=== PATIENT | female | born 1995 | race Two or more races ===

== ENCOUNTER 2022-12-09 11:23 | Emergency (ER) | payer OTHER ==
[~2022-12-09] VITALS: Ht 167.6 cm; Wt 66.8 kg
[2022-12-09] MEDS ORDERED: CYAN100T45 PO (11:37)
[2022-12-09] MEDS ORDERED: LISD60CA PO (11:37)
[2022-12-09] MEDS ORDERED: FLUT1DIS4 IH (11:40)
[2022-12-09] MEDS ORDERED: IBUPROFEN 600 MG TABLET PO ONE (14:45)
[2022-12-09 15:05] LABS: BASOPHILS % (AUTO) 0.5 % (0.0-2.0); EOSINOPHILS % (AUTO) 1.6 % (1.0-6.0); HEMATOCRIT 45.9 % (36-46); HEMOGLOBIN 14.9 g/dL (12.0-16.0); LYMPHOCYTES # (AUTO) 2.2 K/uL (1.0-4.8); LYMPHOCYTES % (AUTO) 33.5 % (22.0-44.0); MEAN CORPUSCULAR HEMOGLOBIN 28.1 pg (26.0-34.0); MEAN CORPUSCULAR HGB CONC 32.5 G/dL (31.0-37.0); MEAN CORPUSCULAR VOLUME 87 fL (80-100); MONOCYTES # (AUTO) 0.3 K/uL (0.1-1.0); MONOCYTES % (AUTO) 4.3 % (2.0-9.0); NEUTROPHILS # (AUTO) 3.9 K/uL (1.8-7.7); NEUTROPHILS % (AUTO) 60.1 % (40.0-70.0); RED BLOOD CELL COUNT(AUTO) 5.29 MIL/uL (4.00-5.20); RED CELL DISTRIBUTION WIDTH 13.2 % (11.5-14.5)
[2022-12-09 15:51] LABS: ANION GAP 12 mmol/L (8-16); CALCIUM, TOTAL 9.6 mg/dL (8.8-10.5); CARBON DIOXIDE 27 mmol/L (22-29); CHLORIDE 102 mmol/L (98-107); GLOMERULAR FILTR. RATE CALC > 60 mL/min (>60); GLUCOSE,RANDOM 86 mg/dL (70-110); SODIUM SERUM 141 mmol/L (136-145); UREA NITROGEN, BLOOD 11 mg/dL (7-18)
[2022-12-09 16:16] LABS: PLATELET COUNT (AUTO) 169 K/uL (150-450)
[2022-12-09 16:28] VITALS: BP 140/69
== END 2022-12-09 16:41 | disposition home or self-care (01) ==
LOC: EMS 11:31
DX: R07.89 Other chest pain (principal); R51.9 Headache, unspecified; J45.909 Unspecified asthma, uncomplicated; F90.9 Attention-deficit hyperactivity disorder, unspecified type; Z98.51 Tubal ligation status
CPT/HCPCS: 70450; 71045; 80048; 84484; 85025; 85379; 93005; 99285; 36415-L1; 36415-TC

== ENCOUNTER 2023-05-31 21:52 | Emergency (ER) | payer OTHER ==
[~2023-05-31] VITALS: Ht 160 cm; Wt 63.0 kg
[~2023-05-31 21:52] MED LIST: CYAN100T45 PO; FLUT1DIS4 IH; LISD60CA PO
[2023-05-31] MEDS ORDERED: SODIUM CHLORIDE 0.9% 1,000 ML IV ONE (22:30)
[2023-05-31] MEDS ORDERED: ONDANSETRON HCL 4 MG/2 ML VIAL IVP ONE (22:45)
[2023-05-31] MEDS ORDERED: ACETAMINOPHEN 500 MG TABLET PO ONE (22:45)
[2023-05-31 22:59] LABS: BASOPHILS % (AUTO) 0.6 % (0.0-2.0); EOSINOPHILS % (AUTO) 0.7 % (1.0-6.0); HEMATOCRIT 39.6 % (36-46); HEMOGLOBIN 12.6 g/dL (12.0-16.0); LYMPHOCYTES # (AUTO) 2.5 K/uL (1.0-4.8); LYMPHOCYTES % (AUTO) 29.5 % (22.0-44.0); MEAN CORPUSCULAR HEMOGLOBIN 27.7 pg (26.0-34.0); MEAN CORPUSCULAR HGB CONC 31.9 G/dL (31.0-37.0); MEAN CORPUSCULAR VOLUME 87 fL (80-100); MONOCYTES # (AUTO) 0.4 K/uL (0.1-1.0); MONOCYTES % (AUTO) 5.1 % (2.0-9.0); NEUTROPHILS # (AUTO) 5.5 K/uL (1.8-7.7); NEUTROPHILS % (AUTO) 64.1 % (40.0-70.0); PLATELET COUNT (AUTO) 181 K/uL (150-450); RED BLOOD CELL COUNT(AUTO) 4.57 MIL/uL (4.00-5.20); RED CELL DISTRIBUTION WIDTH 13.9 % (11.5-14.5)
[2023-05-31 23:09] LABS: ANION GAP 13 mmol/L (8-16); CALCIUM, TOTAL 9.5 mg/dL (8.8-10.5); CARBON DIOXIDE 27 mmol/L (22-29); CHLORIDE 97 mmol/L (98-107); CREATININE 0.78 mg/dL (0.60-1.30); GLOMERULAR FILTR. RATE CALC > 60 mL/min (>60); GLUCOSE,RANDOM 78 mg/dL (70-110); SODIUM SERUM 137 mmol/L (136-145)
[2023-05-31] MEDS ORDERED: IOHEXOL 350 MG/ML 100 ML VIAL ONE (23:12)
[2023-05-31] MEDS ORDERED: SODIUM CHLORIDE 0.9% 100 ML ONE (23:12)
[2023-05-31 23:20] LABS: B-TYPE NATRIURETIC PEPTIDE < 5 pg/mL (0-100)
[2023-05-31 23:22] LABS: ALANINE AMINOTRANSFERASE 35 U/L (12-78); ALBUMIN 3.9 g/dL (3.4-5.0); ALKALINE PHOSPHATASE 87 U/L (46-116); ASPARTATE AMINOTRANSFERASE 32 U/L (15-37); BILIRUBIN,TOTAL 0.6 mg/dL (0.1-1.0); CREATINE KINASE, TOTAL ONLY 71 U/L (26-192); HCG,QUANTITATIVE 1 mIU/mL (0-6); TOTAL PROTEIN, SERUM 7.5 g/dL (6.4-8.2)
[2023-06-01 00:40] LABS: COVID AG,FIA SOURCE NASOPHARYNGEAL
[2023-06-01] MEDS: KETOROLAC TROMETHAMINE 30 MG/ML VIAL IVP ONE ×2 (00:43→00:49)
[2023-06-01 00:45] LABS: APPEARANCE,URINE CLEAR (CLEAR); BILIRUBIN,URINE NEGATIVE (NEGATIVE); GLUCOSE, URINE (UA) NEGATIVE (NEGATIVE); LEUKOCYTE ESTERASE ,URINE NEGATIVE (NEGATIVE); NITRATE,URINE NEGATIVE (NEGATIVE); OCCULT BLOOD,URINE NEGATIVE (NEGATIVE); PH,URINE 6.5 (5.0-8.0); PROTEIN,URINE TRACE mg/dL (NEGATIVE); UROBILINOGEN,URINE <=1.0 mg/dL (<=1.0)
[2023-06-01] MEDS ORDERED: MetroNIDAZOLE 250 MG TABLET PO ONE (02:45)
[2023-06-01] MEDS ORDERED: CefTRIAXone SODIUM 500 MG in DEXTROSE 5%-WATER 50 ML IV ONE (02:45)
[2023-06-01] MEDS ORDERED: DOXYCYCLINE HYCLATE 100 MG TABLET PO ONE (02:45)
[2023-06-01] MEDS ORDERED: DOXY-354 PO (04:43)
[2023-06-01] MEDS ORDERED: METR500 PO (04:43)
[2023-06-01 05:44] VITALS: BP 122/61; PULSE 85; RESP 16; TEMP 98
== END 2023-06-01 05:59 | disposition home or self-care (01) ==
LOC: EMS 21:53
DX: N73.0 Acute parametritis and pelvic cellulitis (principal); F90.9 Attention-deficit hyperactivity disorder, unspecified type; Z20.822 Contact with and (suspected) exposure to COVID-19
CPT/HCPCS: 99285; 74177; 71045; 96361; 96375; 87426; 80053; 81003; 82550; 83690; 83880; 84484; 84702; 85025; 36415; 87491; 87591; 93005; 76705; 96365; 76830; 76856; J2405; Q9967; J7030; J7050; J0696; J7060; J1885

== ENCOUNTER 2023-07-01 20:38 | Emergency (ER) | payer OTHER ==
[~2023-07-01] VITALS: Ht 160 cm; Wt 65.5 kg
[~2023-07-01 20:38] MED LIST changes: +DOXY-354 PO; +METR500 PO
[2023-07-01 23:11] VITALS: BP 133/74; PULSE 86; RESP 18; TEMP 97.3
== END 2023-07-01 23:15 | disposition home or self-care (01) ==
LOC: EMS 20:38
DX: S92.511A Displaced fracture of proximal phalanx of right lesser toe(s), initial encounter for closed fracture (principal); F90.9 Attention-deficit hyperactivity disorder, unspecified type; W22.8XXA Striking against or struck by other objects, initial encounter; Y93.89 Activity, other specified; Y92.89 Other specified places as the place of occurrence of the external cause; Y99.8 Other external cause status
CPT/HCPCS: 99283

== ENCOUNTER 2023-10-26 20:28 | Emergency (ER) | payer OTHER ==
[~2023-10-26] VITALS: Ht 160 cm; Wt 63.6 kg
[~2023-10-26 20:28] MED LIST changes: -CYAN100T45 PO; -DOXY-354 PO; -METR500 PO
[2023-10-26 20:31] VITALS: BP 119/55; PULSE 123; RESP 16; TEMP 98.5
== END 2023-10-26 21:13 | disposition home or self-care (01) ==
LOC: EMS 20:29
DX: R06.02 Shortness of breath (principal); R11.2 Nausea with vomiting, unspecified; Z53.21 Procedure and treatment not carried out due to patient leaving prior to being seen by health care provider
CPT/HCPCS: 93005; 99281; Z7502